=== PATIENT | male | born 1950 | race Caucasian/White ===

== ENCOUNTER 2016-07-04 07:20 | Inpatient (IN) | payer OTHER ==
[~2016-07-04] VITALS: Ht 167.6 cm; Wt 74.9 kg
--- NOTE | ~2016-07-04 | HP ---
PATIENT'S NAME: SHANA ROBERTS [facility] AGE: 65 Y [address] ROOM: [address] [address] LOCATION: GPCU ADMIT DATE: 07/04/2016 History & Physical DISCHARGE DATE: FAMILY PHYSICIAN: PHYSICIAN, UNKNOWN ATTENDING PHYSICIAN: TOM FLORES DATE OF SERVICE: CHIEF COMPLAINT: Nausea and vomiting. HISTORY OF PRESENT ILLNESS: This is a 65-year-old male who came into the ER because of symptoms of not feeling well. History was obtained from the patient. The patient reported that on June 19, 2016 that he had a TURP done at the [facility] in [place] and since then, he has had recurrent urinary retention requiring indwelling Ojeda catheter which has been intermittently replaced back and forth since then. He reported that a week ago last that he went into the emergency room in [place] while he was there for an eye checkup, because of acute urinary retention, he had a Ojeda catheter put in place and was put on antibiotics which he cannot remember the name. He has been using them twice daily and today he has one more pill to go. He reported that during this period, he has also had chills, but his temperature was not taken at home and he reported that three days ago, he had nausea and vomiting and has been vomiting since then till today and with associated chills and headache which he rates as 10/10, more of behind his eyeballs. He also notes loss of appetite. Also, notes lower quadrant abdominal pain which is associated with the acute urinary retention. He denies chest pain. Also, notes a cough which has been on since the surgery with a dry cough. He was told he was going to have cough following intubation and extubation. He denies diarrhea. REVIEW OF SYSTEMS: The 13 elements of review of systems were asked and as documented in the HPI. The others are negative. PAST MEDICAL HISTORY: Includes essential hypertension, Crohn disease, dyslipidemia, and BPH. SURGICAL HISTORY: Includes TURP recently on June 19, right elbow surgery with plate placement, as well as abdominal surgery and splenectomy. SOCIAL HISTORY: Lives with his . Denies smoking. Denies use of alcohol. PATIENT'S NAME: SHANA ROBERTS [facility] AGE: 65 Y [address] ROOM: [id number] [place], [place] [address] [facility]ATION: [facility] ADMIT DATE: 07/04/2016 History & Physical DISCHARGE DATE: FAMILY PHYSICIAN: PHYSICIAN, UNKNOWN ATTENDING PHYSICIAN: TOM FLORES FAMILY HISTORY: Both parents in their 90s. Mother had diabetes, father had asthma. PHYSICAL EXAMINATION: VITAL SIGNS: Temperature in was 101, pulse 118, respiratory rate 16, blood pressure 115/70, respiratory rate is 17. GENERAL: Reveals a male who is alert, awake, oriented x3, who appears uncomfortable, covered with blanket with chills. NEUROLOGIC: Cranial 2-12 are intact bilaterally. Sensory is intact bilaterally. Power is 5/5 in all the extremities. HEENT: Normocephalic, atraumatic. Pupils equal and reactive to light bilaterally. Sensory is intact bilaterally. Pharynx with normal mucosa, is slightly dry. Ear, no obvious ear discharge or drainage. NECK: Supple. No area of tenderness. No lymphadenopathy. CARDIOVASCULAR: Normal S1, S2. Tachycardia. CHEST: Clear to auscultation bilaterally. ABDOMEN: Soft, nondistended. No area of tenderness. No palpable organomegaly. Positive bowel sounds. EXTREMITIES: There is no joint swelling, erythema, or tenderness. SKIN: No rash or skin breakdown. LABORATORY DATA: On admission, lactic acid 1.9, WBC 29.8, H and H 14.2/41.4, platelets 494. Sodium 136, creatinine 1.3, chloride 103, bicarb 19, calcium 8.8, potassium 3.8, BUN 15, albumin 3.2. Liver function tests within normal limit. INR 1.0. Procalcitonin 0.4. Urine for gonococcal testing, negative for Chlamydia trachomatis and Neisseria gonorrhea. Blood cultures are pending. Urine cultures are pending. RADIOLOGY: Chest x-ray, normal chest. CT abdomen, thick-walled bladder with surrounding inflammation. Ojeda catheter in place. This may reflect cystitis, possible gallstones, absent spleen. ASSESSMENT AND PLAN: This is a 65-year-old male who comes in with fever, nausea, and vomiting. 1. Severe sepsis present on admission. Likely source of infection is catheter associated urinary tract infection present on admission. Because of the patient's allergies to penicillin and numerous antibiotics, we will start the patient on cefepime and Levaquin, pharmacy is to dose. 2. Acute kidney injury present on admission, probably prerenal cause from nausea and also insensible water loss from high fevers. We will hydrate the patient aggressively and continue to monitor his kidney function. 3. High anion gap metabolic acidosis secondary to the sepsis from the PATIENT'S NAME: SHANA ROBERTS [facility] AGE: 65 Y [address] ROOM: [place] [address] LOCATION: [facility] ADMIT DATE: 07/04/2016 History & Physical DISCHARGE DATE: FAMILY PHYSICIAN: PHYSICIAN, UNKNOWN ATTENDING PHYSICIAN: TOM FLORES dehydration. We will hydrate the patient and recheck his lactic acid level. 4. Catheter associated urinary tract infection, present on admission. We will continue the patient on the antibiotics and we will follow up on the results of the urine culture. 5. Benign prostatic hypertrophy, present on admission, status post TURP. We will get a urology consult for further management. 6. Acute urinary retention secondary to recent TURP. We will consult Urology for further management. 7. Thrombocytosis present on admission, probably reactive, continue to monitor. 8. Crohn disease, present on admission, stable. 9. Sinus tachycardia from combination of dehydration and fever. We will hydrate the patient and control his fever with Tylenol even though patient reports he has been told not to take Tylenol or ibuprofen because of his Crohn disease. However, we will try him on some rectal Tylenol. 10. Dyslipidemia, stable, continue him on his medication. The line of management was explained to the patient and whose questions were answered and they had no further questions at this time. MD LETICIA ZUNIGA/gómez /[id number] D: 349 T: HISTORY & PHYSICAL
--- NOTE | ~2016-07-04 | DS ---
PATIENT'S NAME: SHANA ROBERTS [facility] AGE: 65 Y [address] ROOM: [id number] [place], [place] [address] LOCATION: GPCU ADMIT DATE: 07/04/2016 Discharge Summary DISCHARGE DATE: 07/08/2016 FAMILY PHYSICIAN: BIJAL SCHMIDT V. ATTENDING PHYSICIAN: Alok Sullivan PRINCIPAL DIAGNOSES: 1. Severe sepsis. 2. Pseudomonas urinary tract infection. 3. Obstructive uropathy. 4. Epididymitis. HOSPITAL COURSE: This is a 65-year-old male, who presented with complaints of fever, chills, generalized fatigue, and was found to have sepsis, which was later identified to be from his urinary tract infection. The patient of note has had recent TURP procedure done and had complications with obstruction following that and has an indwelling Ojeda catheter following that. Current infection is perhaps the result of complications arising from indwelling Ojeda catheter. The patient was started with broad-spectrum IV antibiotics initially, and after cultures and sensitivities had shown Pseudomonas, sensitivity to Levaquin, antibiotics were narrowed down to Levaquin. At this point, the patient had been afebrile for the past 48 hours. White blood cell count has come down, and from the infection sign point, the patient has done very well. The patient of note has been also complaining of severe pain around his right testicle, swelling, and erythema around it, and an ultrasound of the scrotum did show signs of epididymitis on the right side, and this is to be managed with the same antibiotics, and the patient is to continue a 14- day course of antibiotics with Levaquin 500 mg b.i.d. The patient is out of [place] system, however would like to follow up with our urologist here and lives in [place], and although the initial procedure was done in [place], he wants to follow up here. We will provide the patient appointment with our local urology group and preferably Dr. Rodriguez. The patient is currently to be discharged with the Ojeda catheter still in place, and he was given instructions on how to care for Ojeda catheter at home as well. PHYSICAL EXAMINATION: GENERAL: Today, the patient is alert, awake, and oriented x3. CHEST: Clear to auscultation bilaterally. HEART: S1, S2, regular rate and rhythm. ABDOMEN: Soft, nontender, nondistended. : Scrotal swelling with mild erythema. DISPOSITION: Home, and we will follow up. He will see Urology early next week. PATIENT'S NAME: SHANA ROBERTS [facility] AGE: 65 Y [address] ROOM: [place] [address] LOCATION: GPCU ADMIT DATE: 07/04/2016 Discharge Summary DISCHARGE DATE: 07/08/2016 FAMILY PHYSICIAN: BIJAL SCHMIDT V. ATTENDING PHYSICIAN: Alok Sullivan MEDICATIONS: Per MAR. DISPOSITION: Greater than 30 minutes were spent in discharge planning and facilitating. MD COLEEN PIZANO/gómez /[id number] d: 07/09/16 0116 t: 07/23/16 1202, DISCHARGE SUMMARY
--- NOTE | ~2016-07-04 | CON ---
PATIENT'S NAME: SHANA ROBERTS [facility] AGE: 65 Y [address] ROOM: [place] [address] LOCATION: GPCU ADMIT DATE: 07/04/2016 Consultation DISCHARGE DATE: FAMILY PHYSICIAN: PHYSICIAN, UNKNOWN ATTENDING PHYSICIAN: TOM FLORES DATE OF CONSULTATION: 07/04/2016 REFERRING PHYSICIAN: Awa Rodriguez MD HISTORY OF PRESENT ILLNESS: The patient is a 65-year-old male who is status post TURP at the [facility] in [place] earlier this month. Postoperatively, the patient has experienced urinary retention with at least 2 failed voiding trials. The patient's catheter was just recently removed and again he was unable to void and also developed a fever up to 102. The patient is seen in the emergency room and admitted secondary to his fevers for possible urosepsis. Urinalysis reveals nitrite-positive urine. Urine culture is pending. The patient received a 750 mg of IV Levaquin today. Prior to his TURP, the patient complained of weak stream and incomplete bladder emptying. Since the patient is recently status post TURP with failed voiding trials, I recommend continue Ojeda catheterization for remainder of this hospitalization and treat his current infection. The patient will need to follow with the surgeon who performed the procedure to ascertain the reason for his continued urinary retention. PAST MEDICAL HISTORY: Significant for COPD, asthma, hypertension, and Crohn disease. PAST OPERATIONS: Include splenectomy, plate placed in the right arm, repair of pelvic fracture, and disk surgery. MEDICATIONS: See detailed history and physical. ALLERGIES: CODEINE, SULFA, TYLENOL WITH HYDROCODONE, ZOLPIDEM, AMITRIPTYLINE, PENICILLIN, GABAPENTIN, HYDROCHLOROTHIAZIDE, HYDROMORPHONE, IBUPROFEN, MIRTAZAPINE, MORPHINE, TOPIRAMATE, TRAMADOL, TRAZODONE, AND FLUOXETINE. SOCIAL HISTORY: The patient is a nonsmoker and does not consume alcohol. REVIEW OF SYSTEMS: Significant for tachycardia. PATIENT'S NAME: SHANA ROBERTS [facility] AGE: 65 Y [address] ROOM: [place] [address] LOCATION: GPCU ADMIT DATE: 07/04/2016 Consultation DISCHARGE DATE: FAMILY PHYSICIAN: PHYSICIAN, UNKNOWN ATTENDING PHYSICIAN: TOM FLORES PHYSICAL EXAMINATION: GENERAL: Elderly male, currently in no acute distress. HEENT: Eyes: Extraocular motion intact. Ears, Nose, Mouth, and Throat: No nasal or ear drainage noted. LUNGS: Clear bilaterally. CARDIAC: Regular rhythm and rate. ABDOMEN: Benign. NEURO: Grossly intact. SKIN: Within normal limits. : Ojeda catheter in place with clear urine. IMPRESSION: 1. Urinary retention following transurethral resection of the prostate. 2. urosepsis. PLAN: Continue Ojeda catheter. Continue antibiotics. He will require IV antibiotics to temperature until he remains afebrile for 24 hours [place] [id number] to normal levels. MD NAFISA KLINE/gómez /[id number] d: 07/04/168 t: 07/14/16 1237, CONSULTATION REPORT
--- NOTE | ~2016-07-04 | ER ---
PATIENT'S NAME: SHANA ROBERTS [facility] AGE: 65 Y [address] ROOM: [address] [address] LOCATION: GPCU ADMIT DATE: 07/04/2016 ER/Outpatient Report DISCHARGE DATE: FAMILY PHYSICIAN: PHYSICIAN, UNKNOWN ATTENDING PHYSICIAN: TOM FLORES Time of Arrival: 0720 hours. Time of Evaluation/Seen: 0730 hours. IDENTIFICATION: A 65-year-old male. CHIEF COMPLAINT: Catheter problems. HISTORY OF PRESENT ILLNESS: The patient is a 65-year-old male who had what sounds like a TURP on June 19 at the [place]. He has had a large part of his prostate removed, but it was all benign. He had a catheter at that time, then subsequently after that was removed had some urinary retention. It was replaced and then it was again removed, then replaced yet another time and yesterday was removed. Now for 2 days, he said he has had nausea, vomiting, fever, chills, and voiding small amounts of clots. He said they are aware yesterday when they removed the catheter about the nausea, vomiting, and fever, he said at least he told them. He has had a dry cough since surgery, nonproductive but increasing in severity although it is intermittent, had fever and chills. Urinating small amounts of clots. He does have some urethral discharge, some low back pain and nausea and vomiting. PAST MEDICAL HISTORY: ALLERGIES: HE HAS AN EXTENSIVE ALLERGY LIST TO INCLUDE CODEINE, SULFA, ACETAMINOPHEN AND HYDROCODONE, ZOLPIDEM, AMITRIPTYLINE, AMOXICILLIN, GABAPENTIN, HYDROCHLOROTHIAZIDE, HYDROMORPHONE, IBUPROFEN, MIRTAZAPINE, MORPHINE, TOPIRAMATE, TRAMADOL, TRAZODONE, AND FLUOXETINE. THE PATIENT STATES THE MORPHINE CAUSES NAUSEA BUT HE TOLERATES IT WELL WITH THE ZOFRAN. HE ALSO SAID THAT HE GETS ITCHY FROM [place] WHICH IS NOT INCLUDED ON HIS LIST. CURRENT MEDICATIONS: Include: 1. Acyclovir 200 mg 4 capsules by mouth 3 times a day as needed for viral infections for 3 days. 2. Albuterol 1 puff 4 times a day p.r.n. 3. Albuterol nebulizer solution q.4 hours as needed. PATIENT'S NAME: SHANA ROBERTS [facility] AGE: 65 Y [address] ROOM: [id number] [place] [address] [facility] ADMIT DATE: 07/04/2016 ER/Outpatient Report DISCHARGE DATE: FAMILY PHYSICIAN: PHYSICIAN, UNKNOWN ATTENDING PHYSICIAN: TOM FLORES 4. Atenolol 50 mg daily. 5. Budesonide and formoterol 2 puffs by mouth twice daily. 6. Cetirizine 10 mg daily. 7. Dicyclomine 10 mg 2 capsules 4 times a day as needed for abdominal spasm. 8. Mesalamine 375 mg 4 capsules q.a.m. 9. Montelukast 10 mg at bedtime. 10. Omeprazole 20 mg daily. 11. Ranitidine 300 mg at bedtime. 12. Ascorbic acid 1 tablet daily. MEDICAL PROBLEMS: 1. BPH status post TURP. 2. Crohn's disease. 3. Asthma. 4. COPD. 5. Hypertension. 6. 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 PAST SURGICAL HISTORY: Prior surgeries: 1. Splenectomy. 2. Prostate surgery, what sounds like was a TURP on June 19. 3. Fractured pelvis in 2015. 4. Abdominal surgery due to disk trauma and a plate in his right arm. SOCIAL HISTORY: The patient is . Lives here in [place]. He is disabled. Tobacco use, denies. Alcohol use, denies. Drug use, denies. REVIEW OF SYSTEMS: As noted in the HPI. Otherwise, negative. FAMILY HISTORY: No pertinent family history identified. PHYSICAL EXAMINATION: VITAL SIGNS: Weight 73.6 kg. Blood pressure 160/92, pulse 128, respiratory rate is 24, temperature 101.7, and sats 94% on room air. GENERAL: A 65-year-old male in mild distress. HEENT: Head; normocephalic and atraumatic. Ears; TMs translucent in both ears. Eyes; pupils equal and reactive to light and accommodation. Extraocular movements intact. Nose; mucosa pink. No lesions. Mouth; no lesions. Pharynx, benign. NECK: Supple. No lymphadenopathy. LUNGS: Clear to auscultation. Breath sounds are equal. No rhonchi, wheezes, PATIENT'S NAME: SHANA ROBERTS [facility] AGE: 65 Y [address] ROOM: [id number] [place], [place] [address] [facility] ADMIT DATE: 07/04/2016 ER/Outpatient Report DISCHARGE DATE: FAMILY PHYSICIAN: PHYSICIAN, UNKNOWN ATTENDING PHYSICIAN: TOM FLORES or johanne. HEART: Regular rate and rhythm. No murmur, rub, or gallop. ABDOMEN: Bowel sounds present. Soft. Tender to palpation in the lower abdomen, slightly tender in the epigastric region. No rebound or guarding. SKIN: [place], warm, and dry. No lesions or rashes noted. NEUROLOGIC: The patient is alert and oriented x4. Cranial nerves 2 through 12 grossly intact. Motor strength is 5/5 throughout. Sensation is intact to light touch. No lower extremity edema. PSYCHIATRIC: The patient is very anxious. EMERGENCY DEPARTMENT COURSE: A saline lock was initiated. Blood cultures were drawn x2. IV fluids were given initially at 150 mL/h. Then 1 L IV fluid bolus over 30 minutes, then the second liter over 3 hours per the sepsis orders. Zofran 4 mg IV for nausea. LABORATORY DATA AND IMAGING STUDIES: Chest x-ray, no acute process. Pending Radiology over-read. UA: Specific gravity 1.015, pH 7, leukocytes positive, nitrites positive, 100 mg/dL protein, 150 mg/dL ketone, full field of white cells, full field of red cells, negative epithelial cells, and moderate bacteria. Urine culture is pending. Sodium 136, potassium 3.8, chloride 103, CO2 of 19, BUN 15, creatinine 1.3, and blood sugar 130. Liver enzymes normal, and GFR 55. Amylase 36, lipase 114, and procalcitonin 0.49. Hemoglobin 14.2, hematocrit 41.4, platelets 494,000, white blood cell count 29.8, 78% segs, 8% bands, and 8% lymphocytes. INR 1.09. Lactate 1.9. Troponin I is less than 0.040. Urine GC and chlamydia not detected. Urethral swab was cultured for GC and chlamydia and that is currently pending. EKG, sinus tachycardia, 119 beats per minute. No acute ST elevation or depression. No previous EKG available for comparison. IMPRESSION AND PLAN: 1. Urinary tract infection with sepsis. Plan, sepsis orders were initiated and the patient was started on cefepime and Levaquin. The patient states that his reaction to amoxicillin was a rash so we did start the cefepime and amoxicillin down here. He was given morphine for pain 2 mg. Shortly after that he developed a little bit of redness just over the line of his vein. There was no hives, no itching, no shortness of breath. His lungs remained clear and his sats remained greater than 94%. However, both antibiotics which were running at the same time, were discontinued and we will restart the Levaquin to finish that and then restart the cefepime. Sepsis orders were initiated in the emergency room. 2. Acute kidney injury. 3. Dehydration. 4. History of Crohn's disease. CT scan of the abdomen and pelvis without contrast was obtained showing thickening of the bladder consistent with PATIENT'S NAME: SHANA ROEBRTS [facility] AGE: 65 Y [address] ROOM: [place] [address] [facility] ADMIT DATE: 07/04/2016 ER/Outpatient Report DISCHARGE DATE: FAMILY PHYSICIAN: PHYSICIAN, UNKNOWN ATTENDING PHYSICIAN: TOM FLORES cystitis. No other acute findings per Dr. Carlson, radiologist. The patient will be admitted per Dr. Flores, hospitalist. ELISSA ALONSO MD CAR/johannal /[id number] d: 07/04/16 1508 t: 07/06/16 194, OUTPATIENT REPORT
[2016-07-04 08:21] LABS: HEMATOCRIT 41.4 % (37.0-53.0); HEMOGLOBIN 14.2 g/dL (11.0-16.0); MCH 31.1 pg (27.0-34.0); MCHC 34.3 gm/dL (32.0-36.5); MCV 90.8 fl (83.0-98.0); MPV 9.9 fl (9.4-12.4); PLATELET COUNT 494 K/uL (150-450); RBC 4.56 M/uL (3.50-5.50); RDW-CV 14.3 % (11.9-14.6)
[2016-07-04 08:22] LABS: WBC 29.8 K/uL (4.0-11.0)
[2016-07-04 08:27] LABS: INR - (THERAPEUTIC) 1.09 (0.92-1.07); PROTIME 11.5 SECONDS (9.8-11.4); PTT 31 SECONDS (25-32)
[2016-07-04 08:49] LABS: ALBUMIN 3.2 gm/dL (3.5-5.0); ALK PHOS 62 IU/L (33-138); ALT 24 IU/L (12-78); ANION GAP 17.8 (10.0-19.0); AST 12 IU/L (10-40); BLOOD UREA NITROGEN 15 mg/dL (6-24); CALCIUM 8.8 mg/dL (8.5-10.5); CHLORIDE 103 mMol/L (96-110); CO2 19 mMol/L (22-32); CREATININE 1.3 mg/dL (0.6-1.3); ESTIMATED GFR (MDRD EQUATION) 55; POTASSIUM 3.8 mMol/L (3.7-5.1); SODIUM 136 mMol/L (135-145); TOTAL BILIRUBIN 0.9 mg/dL (0.0-1.5); TOTAL PROTEIN 7.7 g/dL (6.0-8.4)
[2016-07-04 08:58] LABS: ABSOLUTE NEUTROPHIL CT (ANC) 25.6 K/uL (1.4-9.0); BANDED NEUTROPHIL # 2.4 K/uL (0.0-0.1); BANDED NEUTROPHILS % 8 %; LYMPHOCYTE # 2.4 K/uL (0.8-4.0); LYMPHOCYTE % 8 %; MONOCYTE # 1.8 K/uL (0.0-1.0); SEGMENTED NEUTROPHIL # 23.2 K/uL (1.4-9.0); SEGMENTED NEUTROPHIL % 78 %
[2016-07-04 09:10] LABS: BILIRUBIN URINE NEGATIVE (NEGATIVE); BLOOD URINE 250 /UL (NEGATIVE); COLOR URINE RED (YELLOW); GLUCOSE URINE NEGATIVE (NEGATIVE); KETONE URINE 150 mg/dL (NEGATIVE); LEUKOCYTES URINE 500 /UL (NEGATIVE); NITRITE URINE POSITIVE (NEGATIVE); PROTEIN URINE 100 mg/dL (NEGATIVE); SPEC GRAVITY URINE 1.015 (1.003-1.035); TURBIDITY URINE 4+ (CLEAR); UROBILINOGEN URINE 1 mg/dL (NORMAL)
[2016-07-04 09:31] LABS: RBC URINE FULL FIELD #/HPF (NEGATIVE); WBC URINE FULL FIELD #/HPF (NEGATIVE)
[2016-07-04 09:36] LABS: BACTERIA URINE MODERATE (NEGATIVE); EPITHELIAL URINE NEGATIVE #/HPF (NEGATIVE)
[2016-07-04 09:37] LABS: MUCUS URINE 1+ (NEGATIVE)
[2016-07-04 09:38] LABS: SPERM URINE RARE #/HPF (NEGATIVE)
[2016-07-04] MEDS ORDERED: ASPIRIN325 MG PO (12:46)
[2016-07-04] MEDS ORDERED: ZOVIRAX200 MG PO (12:47)
[2016-07-04] MEDS ORDERED: ALBUTEROL2.5 MG/31 INH (12:47)
[2016-07-04] MEDS ORDERED: BENTYL10 MG PO (12:48)
[2016-07-04] MEDS ORDERED: TENORMIN50 MG PO (12:48)
[2016-07-04] MEDS ORDERED: ZYRTEC10 MG PO (12:48)
[2016-07-04] MEDS ORDERED: SYMBICORT 16010.2 GM INH (12:51)
[2016-07-04] MEDS ORDERED: CARDURA4 MG PO (12:52)
[2016-07-04] MEDS ORDERED: PERI-COLACE TA1 EACH PO (12:52)
[2016-07-04 12:53] LABS: BICARBONATE 17.5 mmol/L (18.0-23.0); PCO2 21 mmHg (35-45); PO2 115 mmHg (80-90)
[2016-07-04] MEDS ORDERED: PROSCAR5 MG PO (12:53)
[2016-07-04] MEDS ORDERED: SINGULAIR10 MG PO (12:55)
[2016-07-04] MEDS ORDERED: PRILOSEC20 MG PO (12:55)
[2016-07-04] MEDS ORDERED: APRISO0.375 GM PO (12:55)
[2016-07-04] MEDS ORDERED: ZANTAC300 MG PO (12:56)
[2016-07-04] MEDS ORDERED: ZOCOR20 MG PO (12:56)
[2016-07-04] MEDS ORDERED: VITAMIN C1000 MG PO (12:57)
[2016-07-04] MEDS ORDERED: TOPAMAX25 MG PO (12:57)
[2016-07-04] MEDS ORDERED: ACIDOPHILUS1 EAC2 PO (12:58)
[2016-07-05 04:01] LABS: HEMOGLOBIN 12.2 g/dL (11.0-16.0); MCH 31.3 pg (27.0-34.0); MCHC 33.9 gm/dL (32.0-36.5); MCV 92.3 fl (83.0-98.0); PLATELET COUNT 443 K/uL (150-450); RDW-CV 14.7 % (11.9-14.6)
[2016-07-05 04:02] LABS: WBC 31.9 K/uL (4.0-11.0)
[2016-07-05 04:20] LABS: ALBUMIN 2.4 gm/dL (3.5-5.0); ALK PHOS 45 IU/L (33-138); ALT 21 IU/L (12-78); ANION GAP 9.8 (10.0-19.0); AST 16 IU/L (10-40); BLOOD UREA NITROGEN 13 mg/dL (6-24); CALCIUM 7.8 mg/dL (8.5-10.5); CHLORIDE 112 mMol/L (96-110); CO2 21 mMol/L (22-32); CREATININE 0.9 mg/dL (0.6-1.3); ESTIMATED GFR (MDRD EQUATION) > 60; MAGNESIUM 2.2 mg/dL (1.8-2.6); POTASSIUM 3.8 mMol/L (3.7-5.1); SODIUM 139 mMol/L (135-145); TOTAL PROTEIN 6.3 g/dL (6.0-8.4)
[2016-07-05 04:21] LABS: PHOSPHORUS 1.7 mg/dL (2.5-4.9); TOTAL BILIRUBIN 0.7 mg/dL (0.0-1.5)
[2016-07-05 04:47] LABS: ABSOLUTE NEUTROPHIL CT (ANC) 25.5 K/uL (1.4-9.0); BANDED NEUTROPHIL # 6.4 K/uL (0.0-0.1); BANDED NEUTROPHILS % 20 %; LYMPHOCYTE # 2.9 K/uL (0.8-4.0); LYMPHOCYTE % 9 %; MONOCYTE # 3.5 K/uL (0.0-1.0); SEGMENTED NEUTROPHIL # 19.1 K/uL (1.4-9.0); SEGMENTED NEUTROPHIL % 60 %
[2016-07-06 03:56] LABS: HEMATOCRIT 34.6 % (37.0-53.0); HEMOGLOBIN 11.7 g/dL (11.0-16.0); MCH 31.4 pg (27.0-34.0); MCHC 33.8 gm/dL (32.0-36.5); MCV 92.8 fl (83.0-98.0); PLATELET COUNT 455 K/uL (150-450); RBC 3.73 M/uL (3.50-5.50); RDW-CV 14.8 % (11.9-14.6)
[2016-07-06 03:57] LABS: WBC 25.4 K/uL (4.0-11.0)
[2016-07-06 04:12] LABS: ALBUMIN 2.2 gm/dL (3.5-5.0); ANION GAP 12.7 (10.0-19.0); BLOOD UREA NITROGEN 8 mg/dL (6-24); CALCIUM 8.1 mg/dL (8.5-10.5); CHLORIDE 110 mMol/L (96-110); CO2 20 mMol/L (22-32); CREATININE 0.9 mg/dL (0.6-1.3); ESTIMATED GFR (MDRD EQUATION) > 60; POTASSIUM 3.7 mMol/L (3.7-5.1); SODIUM 139 mMol/L (135-145)
[2016-07-06 05:13] LABS: ABSOLUTE NEUTROPHIL CT (ANC) 20.6 K/uL (1.4-9.0); BANDED NEUTROPHIL # 1.3 K/uL (0.0-0.1); BANDED NEUTROPHILS % 5 %; LYMPHOCYTE # 2.8 K/uL (0.8-4.0); LYMPHOCYTE % 11 %; MONOCYTE # 1.8 K/uL (0.0-1.0); SEGMENTED NEUTROPHIL # 19.3 K/uL (1.4-9.0); SEGMENTED NEUTROPHIL % 76 %
[2016-07-07 03:47] LABS: BASOPHIL % 0.2 %; EOSINOPHIL # 0.3 K/uL (0.0-0.5); HEMATOCRIT 34.3 % (37.0-53.0); HEMOGLOBIN 11.7 g/dL (11.0-16.0); IMMATURE GRANULOCYTE # 0.3 K/uL (0.0-0.3); IMMATURE GRANULOCYTE % 1.5 %; LYMPHOCYTE # 2.6 K/uL (0.8-4.0); LYMPHOCYTE % 15.1 %; MCH 31.2 pg (27.0-34.0); MCHC 34.1 gm/dL (32.0-36.5); MCV 91.5 fl (83.0-98.0); MONOCYTE # 1.7 K/uL (0.0-1.0); MONOCYTE % 9.8 %; MPV 9.8 fl (9.4-12.4); NEUTROPHIL # (ANC) 12.5 K/uL (1.4-9.0); NEUTROPHIL % 71.4 %; NRBC % 0.3 /100WBC (0-0.00); PLATELET COUNT 507 K/uL (150-450); RBC 3.75 M/uL (3.50-5.50); RDW-CV 14.7 % (11.9-14.6)
[2016-07-07 03:51] LABS: WBC 17.4 K/uL (4.0-11.0)
[2016-07-07 04:00] LABS: ALBUMIN 2.2 gm/dL (3.5-5.0); ANION GAP 11.7 (10.0-19.0); BLOOD UREA NITROGEN 8 mg/dL (6-24); CALCIUM 8.3 mg/dL (8.5-10.5); CHLORIDE 108 mMol/L (96-110); CO2 23 mMol/L (22-32); ESTIMATED GFR (MDRD EQUATION) > 60; MAGNESIUM 2.3 mg/dL (1.8-2.6); PHOSPHORUS 2.9 mg/dL (2.5-4.9); POTASSIUM 3.7 mMol/L (3.7-5.1); SODIUM 139 mMol/L (135-145)
[2016-07-08 05:34] LABS: BASOPHIL # 0.1 K/uL (0.0-0.2); BASOPHIL % 0.4 %; EOSINOPHIL # 0.4 K/uL (0.0-0.5); EOSINOPHIL % 2.3 %; HEMATOCRIT 34.7 % (37.0-53.0); HEMOGLOBIN 11.6 g/dL (11.0-16.0); IMMATURE GRANULOCYTE # 0.8 K/uL (0.0-0.3); IMMATURE GRANULOCYTE % 4.2 %; LYMPHOCYTE # 3.2 K/uL (0.8-4.0); LYMPHOCYTE % 17.6 %; MCH 30.7 pg (27.0-34.0); MCHC 33.4 gm/dL (32.0-36.5); MCV 91.8 fl (83.0-98.0); MONOCYTE # 1.7 K/uL (0.0-1.0); MONOCYTE % 9.5 %; MPV 9.6 fl (9.4-12.4); NEUTROPHIL # (ANC) 11.9 K/uL (1.4-9.0); NRBC % 0.6 /100WBC (0-0.00); PLATELET COUNT 565 K/uL (150-450); RBC 3.78 M/uL (3.50-5.50); RDW-CV 14.8 % (11.9-14.6)
[2016-07-08 05:36] LABS: WBC 18.1 K/uL (4.0-11.0)
[2016-07-08 05:54] LABS: ALBUMIN 2.3 gm/dL (3.5-5.0); ANION GAP 11.8 (10.0-19.0); BLOOD UREA NITROGEN 10 mg/dL (6-24); CALCIUM 8.3 mg/dL (8.5-10.5); CHLORIDE 107 mMol/L (96-110); CO2 24 mMol/L (22-32); ESTIMATED GFR (MDRD EQUATION) > 60; MAGNESIUM 2.2 mg/dL (1.8-2.6); PHOSPHORUS 2.9 mg/dL (2.5-4.9); POTASSIUM 3.8 mMol/L (3.7-5.1); SODIUM 139 mMol/L (135-145)
[2016-07-08] MEDS ORDERED: LEVAQUIN500 MG PO (13:29)
[2016-07-08] MEDS ORDERED: CLARITIN10 M3 PO (13:41)
[2016-07-08] MEDS ORDERED: ULTRAM50 MG PO (13:51)
== END 2016-07-08 14:10 | disposition disaster alternative care site (69) | DRG 698 ==
LOC: GMED 07:20 → GPCU 09:36
PROVIDERS: Family Medicine; Internal Medicine; ADMIT Hospitalist
DX: T83.511A Infection and inflammatory reaction due to indwelling urethral catheter, initial encounter (principal); A41.9 Sepsis, unspecified organism; N17.9 Acute kidney failure, unspecified; K50.90 Crohn's disease, unspecified, without complications; D47.3 Essential (hemorrhagic) thrombocythemia; E78.00 Pure hypercholesterolemia, unspecified; I10 Essential (primary) hypertension; J44.9 Chronic obstructive pulmonary disease, unspecified; J45.909 Unspecified asthma, uncomplicated; K21.9 Gastro-esophageal reflux disease without esophagitis; N13.9 Obstructive and reflux uropathy, unspecified; N40.0 Benign prostatic hyperplasia without lower urinary tract symptoms; N45.1 Epididymitis; E78.5 Hyperlipidemia, unspecified; E86.0 Dehydration; R33.9 Retention of urine, unspecified
CPT/HCPCS: C9113; J0692; J1644; J1956; J2270; J2405; J7030; J7050

== ENCOUNTER 2016-09-01 17:54 | Emergency (ER) | payer OTHER, MEDICARE ==
--- NOTE | ~2016-09-01 | ER ---
PATIENT'S NAME: SHANA ROBERTS [facility] AGE: 65 Y [address] ROOM: [place] [address] LOCATION: [facility] ADMIT DATE: 09/01/2016 ER/Outpatient Report DISCHARGE DATE: 09/01/2016 FAMILY PHYSICIAN: Physician, Unknown ATTENDING PHYSICIAN: Jason Bryan TIME OF ARRIVAL: 1754 hours. TIME SEEN: 1815 hours. CHIEF COMPLAINT: This is a 65-year-old male previously reasonably healthy. He is in with complaint of urinary retention. HISTORY OF PRESENT ILLNESS: The patient reports that he had a partial prostatectomy in June of this year; and since then, he has been having problems with intermittent urinary retention. He states that about noon today he tried to void and was unable and since then he has had increasing suprapubic pain. PAST MEDICAL HISTORY: Significant for COPD, asthma, and hypertension. CURRENT MEDICATIONS: Please see list. PAST SURGICAL HISTORY: He had a fractured pelvis in 2016 and internal fixation of a right forearm fracture. He has had a partial prostatectomy in June of this year. REVIEW OF SYSTEMS: He denies any fever or chills. He states his appetite has been normal. All other systems are negative. SOCIAL HISTORY: He is a nonsmoker. PHYSICAL EXAMINATION: GENERAL: Alert, pleasant, cooperative male who is anxious in no acute distress. SKIN: Warm and dry. Color is normal. He appeared to be moderately uncomfortable. He was afebrile. HEAD, EARS, EYES, NOSE, AND THROAT: Normal. PATIENT'S NAME: SHANA ROBERTS [facility] AGE: 65 Y [address] ROOM: [place] [address] LOCATION: [facility] ADMIT DATE: 09/01/2016 ER/Outpatient Report DISCHARGE DATE: 09/01/2016 FAMILY PHYSICIAN: Physician, Unknown ATTENDING PHYSICIAN: Jason Bryan NECK: Supple. HEART AND LUNGS: Normal. ABDOMEN: Soft. He had moderate suprapubic tenderness. EXTREMITIES: Normal. NEUROLOGIC: He is alert, oriented x3. He had no focal deficits. LABORATORY DATA: His bladder was catheterized with a Coude catheter and drained approximately 500 mL of clear urine. Urinalysis was negative. CBC and metabolic profile were unremarkable. ASSESSMENT: Acute urinary retention. PLAN: Follow up with his urologist at the [place] early next week. ENID HALE MD JJULIO/modl /[id number] d: 09/02/16 0402 t: 09/02/16 0455, OUTPATIENT REPORT
[~2016-09-01 17:54] MED LIST: ACIDOPHILUS1 EAC2 PO; ALBUTEROL2.5 MG/31 INH; APRISO0.375 GM PO; ASPIRIN325 MG PO; BENTYL10 MG PO; CARDURA4 MG PO; CLARITIN10 M3 PO; LEVAQUIN500 MG PO; PERI-COLACE TA1 EACH PO; PRILOSEC20 MG PO; PROSCAR5 MG PO; SINGULAIR10 MG PO; SYMBICORT 16010.2 GM INH; TENORMIN50 MG PO; TOPAMAX25 MG PO; ULTRAM50 MG PO; VITAMIN C1000 MG PO; ZANTAC300 MG PO; ZOCOR20 MG PO; ZOVIRAX200 MG PO; ZYRTEC10 MG PO
[2016-09-01 19:26] LABS: BASOPHIL % 0.3 %; EOSINOPHIL # 0.1 K/uL (0.0-0.5); EOSINOPHIL % 1.2 %; HEMATOCRIT 40.3 % (37.0-53.0); HEMOGLOBIN 13.5 g/dL (11.0-16.0); IMMATURE GRANULOCYTE % 0.2 %; LYMPHOCYTE % 40.9 %; MCH 31.5 pg (27.0-34.0); MCHC 33.5 gm/dL (32.0-36.5); MCV 93.9 fl (83.0-98.0); MONOCYTE # 1.1 K/uL (0.0-1.0); MONOCYTE % 11.2 %; MPV 10.7 fl (9.4-12.4); NEUTROPHIL # (ANC) 4.5 K/uL (1.4-9.0); NEUTROPHIL % 46.2 %; NRBC % 0 /100WBC (0-0.00); PLATELET COUNT 406 K/uL (150-450); RBC 4.29 M/uL (3.50-5.50); RDW-CV 15.4 % (11.9-14.6); WBC 9.7 K/uL (4.0-11.0)
[2016-09-01 19:42] LABS: ALBUMIN 3.6 gm/dL (3.5-5.0); ANION GAP 10.9 (10.0-19.0); CALCIUM 8.6 mg/dL (8.5-10.5); CREATININE 1.3 mg/dL (0.6-1.3); POTASSIUM 3.9 mMol/L (3.7-5.1); TOTAL PROTEIN 7.2 g/dL (6.0-8.4)
[2016-09-01 19:43] LABS: TOTAL BILIRUBIN 0.3 mg/dL (0.0-1.5)
[2016-09-01 20:08] LABS: BILIRUBIN URINE NEGATIVE (NEGATIVE); BLOOD URINE 150 /UL (NEGATIVE); GLUCOSE URINE NEGATIVE (NEGATIVE); KETONE URINE NEGATIVE (NEGATIVE); LEUKOCYTES URINE NEGATIVE /UL (NEGATIVE); NITRITE URINE NEGATIVE (NEGATIVE); PROTEIN URINE NEGATIVE (NEGATIVE); SPEC GRAVITY URINE 1.015 (1.003-1.035); UROBILINOGEN URINE NORMAL (NORMAL)
[2016-09-01 20:09] LABS: COLOR URINE YELLOW (YELLOW); TURBIDITY URINE 1+ (CLEAR)
[2016-09-01 20:19] LABS: WBC URINE 0-2 #/HPF (NEGATIVE)
[2016-09-01 20:20] LABS: BACTERIA URINE RARE (NEGATIVE); EPITHELIAL URINE NEGATIVE #/HPF (NEGATIVE)
== END 2016-09-01 21:04 | disposition disaster alternative care site (69) ==
LOC: GMED 17:54
PROVIDERS: Emergency Medicine
PROC: 0T2BX0Z Change Drainage Device in Bladder, External Approach (ICD-10-PCS; principal; 2016-09-01)
DX: R33.9 Retention of urine, unspecified (principal); J45.909 Unspecified asthma, uncomplicated; J44.9 Chronic obstructive pulmonary disease, unspecified; I10 Essential (primary) hypertension; Z98.890 Other specified postprocedural states; Z88.2 Allergy status to sulfonamides; Z88.5 Allergy status to narcotic agent; Z88.8 Allergy status to other drugs, medicaments and biological substances; Z90.79 Acquired absence of other genital organ(s)
CPT/HCPCS: J1170; J2060; J2270; J2405

== ENCOUNTER 2016-09-10 14:44 | Emergency (ER) | payer MEDICARE, OTHER ==
--- NOTE | ~2016-09-10 | ER ---
PATIENT'S NAME: SHANA ROBERTS [facility] AGE: 65 Y [address] ROOM: [place] [address] LOCATION: ED ADMIT DATE: 09/10/2016 ER/Outpatient Report DISCHARGE DATE: 09/10/2016 FAMILY PHYSICIAN: Isidro Cowart MD ATTENDING PHYSICIAN: Vargas Moon Time of Arrival: 1448 hours. Time of Evaluation: 1452 hours. CHIEF COMPLAINT: Difficulty urinating. HISTORY OF PRESENT ILLNESS: The patient states in June, he had a TURP done at the [facility] in [place] and he has had problems ever since that surgery. He states this morning, he voided minimal amount at 8 o'clock and since then has not been able to urinate. He is very uncomfortable, hyperventilating, and very fidgety trying to get comfortable, so he can potentially get some relief. He states he was seen at the [facility] in [place] last Saturday. He had a Ojeda in at that time, and they took it out and told him that potentially could have problems again. He is supposed to be seeing somebody at the [facility] in [place] to fix the problem that occurred with surgery. He denies having a fever. He is nauseated, but has not vomited. Having lower abdominal discomfort. ALLERGIES: ON HIS CHART AND REVIEWED BY ME. MEDICATIONS: On his chart and reviewed by me. PAST MEDICAL HISTORY: COPD, asthma, urinary retention, BPH, Crohn's, pelvic fracture. PAST SURGICAL HISTORY: TURP in June, cystoscope last Saturday, splenectomy. SOCIAL HISTORY: Denies use of tobacco, drugs, or alcohol. REVIEW OF SYSTEMS: All negative other than those mentioned in the HPI. PHYSICAL EXAMINATION: VITAL SIGNS: He weighs 75.7 kg, blood pressure is 119/80, pulse of 82, respirations 18, temperature of 98.1, O2 saturation is 99% on room air. PATIENT'S NAME: SHANA ROBERTS [facility] AGE: 65 Y [address] ROOM: [place], [place] [address] LOCATION: [facility] ADMIT DATE: 09/10/2016 ER/Outpatient Report DISCHARGE DATE: 09/10/2016 FAMILY PHYSICIAN: Isidro Cowart MD ATTENDING PHYSICIAN: Vargas Moon GENERAL: He is awake, alert, and oriented x4. SKIN: [place], warm, and dry. LUNGS: Respirations are even and slightly labored due to discomfort. Lung sounds are clear throughout. HEART: Regular rate and rhythm. : A 16-[place] Ojeda cath was placed by the RN, immediately received 500 mL of urine, was clear yellow. The patient reports he is feeling much better. The pressure is relieved. He is able to lie on the cart and allowed us to finish evaluating him. ABDOMEN: Soft and nondistended. Bowel sounds are present. EXTREMITIES: He moves all extremities strongly and equally. EMERGENCY DEPARTMENT COURSE: The patient asked that I contact the [facility] to see if there is any way he could be seen sooner as [facility] [place], and they said that the next available appointment was for October 26. I did call and talk with the [facility] in [place]. Explained incident of today. They would like us to leave the Ojeda in. The patient is currently on some antibiotics from last Saturday, and he is to continue those and then follow up with [place] in 3 weeks for catheter change. [facility] is working with the [facility] to get the patient in sooner in [place], and they will call and talk with the patient regarding the schedule of appointment. IMPRESSION: Urinary retention. PLAN: Home, rest, Ojeda to dependent drainage. The patient is aware of care of the Ojeda. He is to finish his antibiotics and follow [facility] with [facility]. The patient and his verbalized understanding. ROLANDO CESPEDES APRN FOR MD SARAHI TRIPP/[email or web address] /[id number] d: 09/11/16 0027 t: 10/01/16 1654, OUTPATIENT REPORT
[2016-09-10 16:30] LABS: BILIRUBIN URINE NEGATIVE (NEGATIVE); BLOOD URINE 25 /UL (NEGATIVE); COLOR URINE YELLOW (YELLOW); GLUCOSE URINE NEGATIVE (NEGATIVE); KETONE URINE NEGATIVE (NEGATIVE); LEUKOCYTES URINE NEGATIVE /UL (NEGATIVE); NITRITE URINE NEGATIVE (NEGATIVE); PROTEIN URINE NEGATIVE (NEGATIVE); TURBIDITY URINE CLEAR (CLEAR); UROBILINOGEN URINE NORMAL (NORMAL)
[2016-09-10 16:42] LABS: BACTERIA URINE RARE (NEGATIVE); EPITHELIAL URINE NEGATIVE #/HPF (NEGATIVE); RENAL EPITH URINE NEGATIVE #/HPF (NEGATIVE); WBC URINE NEGATIVE #/HPF (NEGATIVE)
== END 2016-09-10 16:17 | disposition disaster alternative care site (69) ==
LOC: GMED 14:44
PROVIDERS: Emergency Medicine
PROC: 0T9B70Z Drainage of Bladder with Drainage Device, Via Natural or Artificial Opening (ICD-10-PCS; principal; 2016-09-10)
DX: R33.9 Retention of urine, unspecified (principal); J44.9 Chronic obstructive pulmonary disease, unspecified; I10 Essential (primary) hypertension; K50.90 Crohn's disease, unspecified, without complications; Z79.899 Other long term (current) drug therapy; Z88.1 Allergy status to other antibiotic agents; Z88.6 Allergy status to analgesic agent; Z88.5 Allergy status to narcotic agent; Z88.8 Allergy status to other drugs, medicaments and biological substances; Z90.81 Acquired absence of spleen; Z98.890 Other specified postprocedural states; Z88.2 Allergy status to sulfonamides